=== PATIENT | male | born 1990 | race Caucasian/White ===

== ENCOUNTER 2018-05-04 14:01 | Emergency (ER) | payer OTHER ==
--- NOTE | 2018-05-04 14:27 | ED Physician Documentation ---
PD HPI ABD PAIN - Stated complaint Stated Complaint: STOMACH PX - Chief complaint Chief Complaint: Abd Pain - History obtained from History obtained from: Patient PD PAST MEDICAL HISTORY - Past Medical History Cardiovascular: None Respiratory: None Endocrine/Autoimmune: None GI: None : None HEENT: Chronic vision loss Psych: None Musculoskeletal: Other Derm: None - Past Surgical History Past Surgical History: No General: Appendectomy Ortho: Other HEENT: Tonsil/Adenoidectomy - Present Medications Home Medications: Ambulatory Orders Medication Instructions Recorded Confirmed Dexamethasone [Decadron] 4 mg PO DAILY #5 tablet 05/04/18 Naproxen 375 mg PO BID #20 tablet 05/04/18 Ondansetron HCl [Zofran] 4 mg PO Q6H PRN #20 tablet 05/04/18 Oxycodone HCl/Acetaminophen 1 each PO Q6H PRN #20 tablet 05/04/18 [Percocet 5-325 mg Tablet] Tamsulosin [Flomax] 0.4 mg PO DAILY #5 capsule 05/04/18 - Allergies Allergies/Adverse Reactions: Allergies Allergy/AdvReac Type Severity Reaction Status Date / Time nickel [Nickel] Allergy Rash Verified 05/04/18 14:13 - Social History Does the pt smoke?: Yes Smoking Status: Current every day smoker Does the pt drink ETOH?: No Does the pt have substance abuse?: No - Immunizations Immunizations are current?: Yes - POLST Patient has POLST: No PD ED PE NORMAL - Vitals Vital signs reviewed: Yes - General General: Alert and oriented X 3, No acute distress, Well developed/nourished - HEENT HEENT: Atraumatic, Pharynx benign - Neck Neck: Supple, no meningeal sign, No adenopathy - Cardiac Cardiac: RRR, No murmur - Respiratory Respiratory: Clear bilaterally - Abdomen Abdomen: Soft, Non tender - Male Male : Deferred - Rectal Rectal: Deferred - Back Back: No CVA TTP Results - Vitals Vitals: Oxygen O2 Source Room air - Labs Labs: Laboratory Tests 05/04/18 05/04/18 05/04/18 14:59 14:59 14:59 WBC 9.5 RBC 4.66 L Hgb 14.8 Hct 42.5 MCV 91.2 MCH 31.7 H MCHC 34.7 RDW 12.0 Plt Count 168 MPV 9.9 Neut # (Auto) 6.6 Lymph # (Auto) 1.7 [place] # (Auto) 1.0 Eos # (Auto) 0.1 Baso # (Auto) 0.1 Absolute Nucleated RBC 0.01 Nucleated RBC % 0.1 Sodium 136 Potassium 4.0 Chloride 100 L Carbon Dioxide 27 Anion Gap 9.0 BUN 9 Creatinine 0.9 Estimated GFR (MDRD) 100 Glucose 106 H Calcium 8.9 Total Bilirubin 0.8 AST 30 ALT 29 Alkaline Phosphatase 54 Total Protein 7.4 Albumin 4.3 Globulin 3.1 Albumin/Globulin Ratio 1.4 Lipase 43 Urine Color DARK YELLOW Urine Clarity CLEAR Urine pH 6.0 Ur Specific [place] 1.020 Urine Protein 30 H Urine Glucose (UA) NEGATIVE Urine Ketones NEGATIVE Urine Occult Blood LARGE H Urine Nitrite NEGATIVE Urine Bilirubin NEGATIVE Urine Urobilinogen 0.2 (NORMAL) Ur Leukocyte Esterase NEGATIVE Urine RBC TNTC H Urine WBC 0-3 Ur Squamous Epith Cells NONE SEEN Urine Bacteria None Seen Ur Microscopic Review INDICATED Urine Culture Comments NOT INDICATED - Rads (name of study) KUB CT Radiology: Prelim report reviewed (3 mm stone 3/[address] sss) PD MEDICAL DECISION MAKING - Sepsis Event Vital Signs: Oxygen O2 Source Room air Departure - Departure Disposition: 01 Home, Self Care Clinical Impression: Ureterolithiasis Abdominal pain Qualifiers: Abdominal location: right lower quadrant Qualified Code(s): R10.31 - Right lower quadrant pain Condition: Stable Record reviewed to determine appropriate education?: Yes Instructions: ED Stone Renal W Colic Follow-Up: BREANA TUBBS MD [Primary Care Provider] - Prescriptions: Dexamethasone [Decadron] 4 mg PO DAILY #5 tablet Naproxen 375 mg PO BID #20 tablet Ondansetron HCl [Zofran] 4 mg PO Q6H PRN #20 tablet PRN Reason: Nausea / Vomiting Oxycodone HCl/Acetaminophen [Percocet 5-325 mg Tablet] 1 each PO Q6H PRN #20 tablet PRN Reason: Pain Tamsulosin [Flomax] 0.4 mg PO DAILY #5 capsule Comments: You have a small kidney stone that is passing down the ureter and is about [address]. There should be passable over the next several days. We will treated with anti-inflammatories of both Decadron steroid and naproxen NSAID as directed. Tamsulosin tries to reduce ureter spasms and promote passage a little bit better. Use Tylenol or Percocet if needed for pain. Ondansetron if needed for nausea. Off work for a day or 2. Follow-up if not better over the next several days. Return sooner if worsening. Forms: Activity restrictions Discharge Date/Time: 05/04/18 16:50
[2018-05-04] MEDS ORDERED: KETOROLAC 60 MG/2 ML VIAL IVP STA (14:53)
[2018-05-04] MEDS ORDERED: MORPHINE 10 MG/ML VIAL IVP STA (14:53)
[2018-05-04 15:05] LABS: BILIRUBIN,URINE NEGATIVE (NEGATIVE); GLUCOSE, URINE (UA) NEGATIVE (NEGATIVE); KETONES,URINE (UA) NEGATIVE (NEGATIVE); LEUKOCYTE ESTERASE, URINE NEGATIVE (NEGATIVE); NITRITE,URINE NEGATIVE (NEGATIVE); OCCULT BLOOD,URINE LARGE (NEGATIVE); PROTEIN,URINE 30 mg/dL (NEGATIVE); UROBILINOGEN,URINE 0.2 (NORMAL) E.U./dL (NORMAL)
[2018-05-04 15:06] LABS: BASOPHILS # (AUTO) 0.1 10^3/uL (0.0-0.1); BASOPHILS % (AUTO) 0.9 %; EOSINOPHILS # (AUTO) 0.1 10^3/uL (0.0-0.7); EOSINOPHILS % (AUTO) 0.7 %; HGB - HEMOGLOBIN 14.8 g/dL (14.0-18.0); LYMPHOCYTES # (AUTO) 1.7 10^3/uL (1.5-3.5); LYMPHOCYTES % (AUTO) 17.8 %; MEAN CORPUSCULAR HEMOGLOBIN 31.7 pg (27.0-31.0); MEAN CORPUSCULAR HGB CONC 34.7 g/dL (32.0-36.0); MEAN CORPUSCULAR VOLUME 91.2 fL (80.0-94.0); MEAN PLATELET VOLUME 9.9 fL (7.4-11.4); MONOCYTES % (AUTO) 10.5 %; NEUTROPHILS # (AUTO) 6.6 10^3/uL (1.5-6.6); NEUTROPHILS % (AUTO) 70.1 %; PLT - PLATELET COUNT 168 10^3/uL (130-450); RED BLOOD COUNT 4.66 10^6/uL (4.70-6.10); WHITE BLOOD COUNT 9.5 x10^3/uL (4.8-10.8)
[2018-05-04 15:12] LABS: CLARITY,URINE CLEAR (CLEAR)
[2018-05-04 15:15] LABS: ALBUMIN 4.3 g/dL (3.2-5.5); ALBUMIN/GLOBULIN RATIO 1.4 (1.0-2.2); BILIRUBIN,TOTAL 0.8 mg/dL (0.2-1.0); CALCIUM 8.9 mg/dL (8.5-10.3); CREATININE 0.9 mg/dL (0.6-1.2); TOTAL PROTEIN 7.4 g/dL (6.7-8.2)
[2018-05-04 15:28] LABS: BACTERIA,URINE None Seen /HPF (None Seen); RBC,URINE TNTC /HPF (0-5); SQUAMOUS EPITHELIAL CELL,UR NONE SEEN (<= Few)
--- NOTE | 2018-05-04 15:46 | CT Report ---
Reason: right lower abd pain since yesterday Procedure Date: 05/04/2018 Accession Number: [id number] / [id number] Procedure: CT - KUB CPT Code: FULL RESULT: EXAM: CT ABDOMEN AND PELVIS (CT KUB) EXAM DATE: 05/04/2018 03:33 PM. CLINICAL HISTORY: Right lower abdomen pain since yesterday. COMPARISONS: None. TECHNIQUE: Routine axial helical CT imaging was performed through the abdomen and pelvis without IV contrast. Reconstructions: Coronal and sagittal. In accordance with CT protocol optimization, one or more of the following dose reduction techniques were utilized for this exam: automated exposure control, adjustment of mA and/or KV based on patient size, or use of iterative reconstructive technique. FINDINGS: Lung Bases: Unremarkable. Right Kidney/Ureter: Intrarenal stones up to 3 mm size. Mild right hydronephrosis, hydroureter, and perinephric fat stranding due to an obstructing 3 mm stone at the pelvic brim. Left Kidney/Ureter: Nonobstructing 2 mm intrarenal stone. No ureteral stones, hydronephrosis, or hydroureter. No perinephric fat stranding. Other Solid Organs: Noncontrast images of the solid organs are grossly unremarkable. Gallbladder/Bile Ducts: Unremarkable. Peritoneal Cavity: No free fluid, free air or arabella adenopathy. Bowel is grossly unremarkable. Pelvic Organs: No bladder stones or wall thickening. Noncontrast images of the visualized pelvic organs are unremarkable. Vasculature: Unremarkable. Other: None. IMPRESSION: 1. Obstructing 3 mm stone in the right ureter at the pelvic brim with mild right hydronephrosis, hydroureter, and periureteral fat stranding. 2. Small bilateral intrarenal stones also noted. RADIA
[2018-05-04] MEDS ORDERED: DEXAMETHASONE 10 MG/ML VIAL IVP STA (16:18)
[2018-05-04 17:00] VITALS: BP 128/88
== END 2018-05-04 16:50 | disposition home or self-care (01) ==
LOC: ED 14:01
DX: N20.1 Calculus of ureter (principal)
CPT/HCPCS: 36415; 74176; 80053; 81001; 81003; 83690; 85025; 87086; 96374; 96375; 99283; 99284

== ENCOUNTER 2018-06-23 18:54 | Emergency (ER) | payer OTHER ==
[2018-06-23] MEDS ORDERED: HYDROmorphone 1 MG/ML CARPUJECT IVP STA ×2 (19:12→20:32)
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
[2018-06-23 19:39] LABS: BASOPHILS # (AUTO) 0.1 10^3/uL (0.0-0.1); BASOPHILS % (AUTO) 0.7 %; EOSINOPHILS # (AUTO) 0.1 10^3/uL (0.0-0.7); EOSINOPHILS % (AUTO) 0.6 %; LYMPHOCYTES # (AUTO) 2.1 10^3/uL (1.5-3.5); LYMPHOCYTES % (AUTO) 14.7 %; MEAN CORPUSCULAR HEMOGLOBIN 31.4 pg (27.0-31.0); MEAN CORPUSCULAR HGB CONC 34.3 g/dL (32.0-36.0); MEAN CORPUSCULAR VOLUME 91.6 fL (80.0-94.0); MEAN PLATELET VOLUME 10.7 fL (7.4-11.4); MONOCYTES % (AUTO) 6.7 %; NEUTROPHILS % (AUTO) 77.3 %; PLT - PLATELET COUNT 178 10^3/uL (130-450); RED BLOOD COUNT 4.79 10^6/uL (4.70-6.10); RED CELL DISTRIBUTION WIDTH 12.7 % (12.0-15.0); WHITE BLOOD COUNT 14.3 x10^3/uL (4.8-10.8)
[2018-06-23 19:48] LABS: ALBUMIN 4.4 g/dL (3.2-5.5); ALBUMIN/GLOBULIN RATIO 1.4 (1.0-2.2); BILIRUBIN,TOTAL 0.7 mg/dL (0.2-1.0); CALCIUM 9.1 mg/dL (8.5-10.3); CREATININE 1.1 mg/dL (0.6-1.2); TOTAL PROTEIN 7.5 g/dL (6.7-8.2)
[2018-06-23] MEDS ORDERED: LIDOCAINE-MPF 2% 7.5 ML in SODIUM CHLORIDE 0.9% 50 ML IV STA (19:58)
[2018-06-23 20:05] LABS: BILIRUBIN,URINE NEGATIVE (NEGATIVE); KETONES,URINE (UA) NEGATIVE (NEGATIVE); OCCULT BLOOD,URINE LARGE (NEGATIVE); PH,URINE 5.5 PH (5.0-7.5)
[2018-06-23 20:14] LABS: CLARITY,URINE BLOODY (CLEAR)
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
[2018-06-23 20:16] LABS: BACTERIA,URINE None Seen /HPF (None Seen); RBC,URINE TNTC /HPF (0-5); SQUAMOUS EPITHELIAL CELL,UR RARE Squamous (<= Few)
[2018-06-23] MEDS ORDERED: PHENAZOPYRIDINE 100 MG TABLET PO STA (20:29)
[2018-06-23] MEDS ORDERED: OXYBUTYNIN 5MG TABLET PO STA (20:29)
[2018-06-23] MEDS ORDERED: PHENAZOPYRIDINE 100 MG TABLET PO ONE (20:55)
[2018-06-23] MEDS ORDERED: KETOROLAC 60 MG/2 ML VIAL IVP STA (21:16)
[2018-06-23 21:28] VITALS: BP 140/82
== END 2018-06-23 21:42 | disposition home or self-care (01) ==
LOC: ED 18:54
DX: R10.31 Right lower quadrant pain (principal); Z87.442 Personal history of urinary calculi; T18.2XXD Foreign body in stomach, subsequent encounter; X58.XXXD Exposure to other specified factors, subsequent encounter; Z87.891 Personal history of nicotine dependence
CPT/HCPCS: 36415; 74018; 80053; 81001; 83690; 85025; 96365; 96375; 96376; 99284; A9270; J1170; J7040; 81003; 87086

== ENCOUNTER 2018-12-28 12:40 | Emergency (ER) | payer OTHER ==
[2018-12-28] MEDS ORDERED: LIDOCAINE 2%-EPI 1:100000 20 ML MDV SUBQ STA (13:40)
--- NOTE | 2018-12-28 13:45 | ED Physician Documentation ---
History of Present Illness - Stated complaint Stated Complaint: RT HIP CYST - Chief complaint Chief Complaint: General - History obtained from History obtained from: Patient - History of Present Illness Timing: How many days ago (2) Pain level max: 6 Pain level now: 5 - Additonal information Additional information: 28 year old male with redness and swelling to the R hip. no IV/SQ drug use. Td UTD. No similar symptoms before. no injury. nothing makes it better or worse. Review of Systems Constitutional: denies: Fever, Chills Nose: denies: Rhinorrhea / runny nose, Congestion Throat: denies: Sore throat Cardiac: denies: Chest pain / pressure Respiratory: denies: Cough GI: denies: Nausea, Vomiting, Diarrhea Musculoskeletal: denies: Neck pain, Back pain Neurologic: denies: Headache PD PAST MEDICAL HISTORY - Past Medical History Past Medical History: No Cardiovascular: None Respiratory: None Neuro: None Endocrine/Autoimmune: None GI: None : None HEENT: Chronic vision loss Psych: None Musculoskeletal: None Derm: None - Past Surgical History Past Surgical History: No General: Appendectomy Ortho: Other HEENT: Tonsil/Adenoidectomy - Present Medications Home Medications: Ambulatory Orders Medication Instructions Recorded Confirmed Sulfamethox/Trimeth 800/160 1 each PO BID #14 tablet 12/28/18 [Bactrim Ds 800/160] - Allergies Allergies/Adverse Reactions: Allergies Allergy/AdvReac Type Severity Reaction Status Date / Time nickel [Nickel] Allergy Rash Verified 12/28/18 12:46 - Social History Does the pt smoke?: Yes Smoking Status: Current every day smoker Does the pt drink ETOH?: Yes Does the pt have substance abuse?: No - Immunizations Immunizations are current?: Yes - POLST Patient has POLST: No PD ED PE NORMAL - Vitals Vital signs reviewed: Yes - General General: Alert and oriented X 3, No acute distress - HEENT HEENT: Moist mucous membranes - Neck Neck: Supple, no meningeal sign - Derm Derm: Warm and dry - Extremities Extremities: Other (2x2cm abscess to the R hip. ) - Neuro Neuro: Alert and oriented X 3 - Psych Psych: Normal mood, Normal affect Results - Vitals Vitals: Vital Signs - 24 hr 12/28/18 14:10 Temperature 36.0 C L Heart Rate 86 Respiratory 16 Rate Blood Pressure 145/86 H O2 Saturation 98 Oxygen O2 Source Room air - Labs Labs: Microbiology 12/28/18 13:55 Wound Culture - Preliminary Abscess Procedures - Abscess I&D (location) R hip Preparation: Lidocaine 2 %, With epi Incision: Incised with scalpel, Purulent drainage, Culture obtained Other: Pt tolerated well PD MEDICAL DECISION MAKING - ED course Complexity details: considered differential, d/w patient ED course: Patient with a small abscess to the right hip. Incised and drained. Tolerated well. There is surrounding cellulitis, therefore will place on antibiotics. Patient counseled regarding signs and symptoms for which I believe and urgent re-evaluation would be necessary. Patient with good understanding of and agreement to plan and is comfortable going home at this time This document was made in part using voice recognition software. While efforts are made to proofread this document, sound alike and grammatical errors may occur. Departure - Departure Disposition: 01 Home, Self Care Clinical Impression: Abscess Condition: Good Instructions: ED Abscess IandD Follow-Up: BREANA TUBBS MD [Primary Care Provider] - Within 1 week Prescriptions: Sulfamethox/Trimeth 800/160 [Bactrim Ds 800/160] 1 each PO BID #14 tablet Comments: Take all antibiotics until gone. Return if you worsen. Discharge Date/Time: 12/28/18 14:11
[2018-12-28 14:11] VITALS: BP 145/86
== END 2018-12-28 14:11 | disposition home or self-care (01) ==
LOC: ED 12:40
DX: L02.416 Cutaneous abscess of left lower limb (principal); L03.115 Cellulitis of right lower limb; F17.200 Nicotine dependence, unspecified, uncomplicated
CPT/HCPCS: 10060; 87070; 87205; 99283

== ENCOUNTER 2022-12-13 13:10 | Emergency (ER) | payer OTHER ==
[2022-12-13 13:22] VITALS: BP 140/80
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
--- NOTE | 2022-12-13 13:57 | XRAY Report ---
PROCEDURE: Knee 3 View LT INDICATIONS: pain and pop TECHNIQUE: 3 views of the left knee(s) were acquired. COMPARISON: None. FINDINGS: Bones: No fractures or dislocations. No suspicious bony lesions. Soft tissues: No knee joint effusion. No suspicious soft tissue calcifications or masses. IMPRESSION: No acute bony abnormality. If there remains a high clinical concern for fracture, including inability to bear weight, consider cross-sectional imaging to exclude an occult fracture. Reviewed by: Juan Blue on 12/13/2022 1:55 PM PDT Approved by: Juan Blue on 12/13/2022 1:55 PM PDT Station ID: [id number]
== END 2022-12-13 14:55 | disposition home or self-care (01) ==
LOC: ED 13:10
DX: S83.412A Sprain of medial collateral ligament of left knee, initial encounter (principal); X50.1XXA Overexertion from prolonged static or awkward postures, initial encounter; Y93.83 Activity, rough housing and horseplay; F17.200 Nicotine dependence, unspecified, uncomplicated
CPT/HCPCS: 99283

== ENCOUNTER 2023-06-09 13:53 | Outpatient (CLI) | payer OTHER ==
--- NOTE | 2023-06-09 14:53 | Sleep Patient Instructions ---
Sleep Center Visit Summary - Patient Visit Information Reason for Visit: Initial consult for evaluation of sleep disordered breathing and other sleep issues. - Patient Instructions Instructions Attached: Sleep Study Home Monitor, Sleep Clinic Visit, Sleep Study Additional Instructions: You will be completing a sleep study, either an in-lab polysomnography (PSG) or home sleep study (HST). You will follow-up in the sleep care office after the sleep study is completed to hear the results and talk about therapy, if needed. You will be called by our office staff to schedule this appointment, but you may contact us with any questions. - Clinic Information Contact: [facility] [address] [place] [address] [email or web address] T: [phone]
--- NOTE | 2023-06-09 14:57 | SLEEP CARE CONSULTATION ---
Information from patient questionnaire entered by Lisbet Agrawal. I have reviewed and concur with the information entered by Lisbet Agrawal. This document represents the service I personally performed and the decisions made by me, Peggy Wright ARNP. History of Present Illness Service Date and Time: 06/09/2023 1353 Reason for Visit: New patient Chief Complaint: reports: Unrefreshed sleep, Snoring, Excessive daytime sleepiness, Observed pauses in breathing, Fatigue, Frequent awakenings at night Date of Onset: 10PLUS YRS Usual bedtime: 9-930PM Time it takes to fall asleep: 10-15MINS Snores at night: Yes Observed to quit breathing while asleep: Yes Sleeps alone due to snoring: Yes Number of times waking at night: 3-8 Reasons for waking at night: reports: Choking, Snoring, Gasping for air, Bathroom, Other (UNKNOWN, NOISE) Toss, Turn, or Twitch while sleeping: Yes Recalls having dreams: Yes Usually gets out of bed at: 06-0615AM Feels refreshed in the morning: No Morning headache: No Sleepy or fatigued during the day: Yes Ever fallen asleep while driving: Yes (drowsy driving, no accidents) Takes day naps: Yes (2 times a week for 15-30 mins) Dreams during day naps: Yes Prior sleep studies: No Additional HPI information: I had the pleasure of seeing ABY BONILLA today regarding the possibility of him having a sleep disorder. His current complaints are unrefreshed sleep, snoring, excessive daytime sleepiness, observed pauses in breathing, fatigue and frequent night awakenings. He states he is always tired. He wake up tired and snoring. He does sometimes sleep separate due to snoring. - Parasomnia Symptoms Ever been unable to move upon waking from sleep: Yes (not often) Walks in sleep: Yes (more when younger) Talks in sleep: Yes Ever acted out dreams in sleep: Yes (moving arms during dreams) Ever felt weak in the knees when startled or emotional: Yes (has not fallen to ground) Bothered by creepy, crawly, restless sensations in legs: No Problems with memory or concentration: Yes (both; memory worse) Subjective Initial [place] Sleepiness Scale score: 17 (06/09/23) Past Medical History Past Medical History: reports: Other (no significant medical history; tonsillectomy and adenoidectomy around 9 yrs old) Social History 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 Patient is Single and lives in [place]. Have you smoked in the past 12 months: Yes Cigarettes per day (20/pack): 20 Years of smokin Quit date: 04/2023 Smoking Pack Years: 10.0 Alcohol use: Yes Alcohol amount and frequency: 4-5 ONCE A WEEK Caffeine use: Yes Caffeine amount and frequency: 2 PER DAY Family History Family history of sleep disordered breathing: Yes Family Hx Sleep Apnea: Mother: Snoring, Father: Snoring, Sibling: Snoring Allergies and Home Medications Known drug allergies: No (nickel) Drug allergies reviewed: Yes Home medication list reviewed: Yes (occasional melatonin; tums nightly) Allergy and home medication list: Allergies nickel [Nickel] Allergy (Verified 06/08/23 09:37) Rash Home Medications Medication Instructions Recorded Confirmed Last Taken Type No Known Home Medications 12/13/22 06/09/23 Unknown History Review of Systems Weight gain over past 5 years: 10 Weight loss over past 5 years: 10 Cardiovascular: denies: high blood pressure Respiratory: reports: wheeze Gastrointestinal: reports: heartburn, difficulty swallowing, nausea, diarrhea, abdominal pain Neurological: denies: headaches Psychiatric: denies: anxiety, depression Ear/Nose/Throat: reports: tonsillectomy (and adenoidectomy at 9 yrs old), wisdom teeth removed Endocrine: reports: sluggishness, too hot or cold, excessive thirst Immunologic: reports: allergies to food or environment (nickel) Physical Exam Vital signs obtained and entered by: LISBET Barker MA Blood Pressure: 122/70 (LEFT ARM) Cuff size: regular Heart Rate: 74 O2 Saturation: 98 Height: 5 ft 9 in Weight: 231 lb 9.6 oz Body Mass Index: 34.2 BMI Classification: Obese Neck circumference: 17 Mouth and throat: narrow oropharynx Soft palate: long Hard palate: arched Uvula: normal Uvula visualization: 0% Mallampati Class IV Tongue: enlarged in size with teeth [place] on lateral edges Tonsils: absent bilaterally Neck: normal w/o lymphadenopathy or thyromegaly Heart: regular rate and rhythm Lungs: clear bilaterally Impression and Plan 1. Suspected Obstructive Sleep Apnea-Hypopnea Syndrome, as suggested by a history of loud and irregular snoring, observed cessation of breath while a sleep, gasping or choking in sleep, frequent awakening during the night, unrefreshed sleep, cognitive impairment, and excessive daytime sleepiness. Narrow oropharynx and obesity are common predisposing factors for obstructive sleep apnea-hypopnea syndrome. I recommend proceeding to polysomnography to confirm the diagnosis and to assess severity. If the patient has significant sleep disordered breathing, a manual CPAP titration study will also be performed to find the optimal treatment pressure. I informed the patient of what the sleep studies involve and after some discussion, obtained agreement to proceed. The pathophysiology of obstructive sleep apnea-hypopnea syndrome was discussed with the patient and health risks of cardiovascular and cerebrovascular disease if not treated. Risks of drowsy driving discussed in detail and patient advised to avoid long distance driving and to drum puller at the first sign of drowsiness. Patient agreed to plan. * Schedule polysomnography. * Avoid long distance driving or driving when feeling sleepy. * Avoid alcohol, sedative and muscle relaxant around bedtime. * Attempt to lose weight. * Review instructions provided by trained office staff on how to prepare for the sleep study. * Return for follow-up after sleep study completed. Counseling Topics: Weight loss health impact Plan: PSG Visit Type: In Office Time Spent with Patient (minutes): 30 Provider Statement: I spent 100% of the Face to Face Visit with the patient with greater than 50% spent counseling the patient and coordination of care.
[2023-06-09 15:05] VITALS: BP 122/70; O2SAT 98
== END 2023-06-09 13:54 | disposition home or self-care (01) ==
LOC: SC 13:53
PROVIDERS: ATTEND Nurse Practitioner Family
DX: R06.83 Snoring (principal); R06.81 Apnea, not elsewhere classified; G47.8 Other sleep disorders; R41.89 Other symptoms and signs involving cognitive functions and awareness; G47.10 Hypersomnia, unspecified; E66.9 Obesity, unspecified; Z68.34 Body mass index [BMI] 34.0-34.9, adult
CPT/HCPCS: 99203; 99212

== ENCOUNTER 2023-07-06 19:18 | Outpatient (CLI) | payer OTHER | END 2023-07-06 19:19 | disposition home or self-care (01) | LOC: SC 19:18 | PROVIDERS: ATTEND Nurse Practitioner Family | DX: R06.83 Snoring (principal); G47.8 Other sleep disorders; R06.81 Apnea, not elsewhere classified; G47.10 Hypersomnia, unspecified; R53.83 Other fatigue; E66.9 Obesity, unspecified; Z68.34 Body mass index [BMI] 34.0-34.9, adult | CPT/HCPCS: 95810 ==

== ENCOUNTER 2023-07-26 13:20 | Outpatient (CLI) | payer OTHER ==
--- NOTE | 2023-07-26 13:46 | Sleep Patient Instructions ---
Sleep Center Visit Summary - Patient Visit Information Reason for Visit: Sleep study follow-up - Patient Instructions Instructions Attached: Snoring Tips Prevent Additional Instructions: Your sleep study today was negative for significant sleep disordered breathing. You were found to have episodes of snoring. There are different ways to control snoring including weight loss, oral devices made by a dentist or surgical options through ENT specialist. You should not use oral devices that do not fit properly because they can affect your bite. You should also check insurance coverage of oral devices for snoring because they may not be cover well. You may obtain a referral to an ENT specialist through your primary provider. Follow-up as needed. - Clinic Information Contact: [facility] [address] [place] [address] [email or web address] T: [phone]
--- NOTE | 2023-07-26 13:50 | SLEEP CARE CONSULTATION ---
Information from patient questionnaire entered by Maude Agrawal. I have reviewed and concur with the information entered by Maude Agrawal. This document represents the service I personally performed and the decisions made by , Peggy Wright ARNP. History of Present Illness Service Date and Time: 07/26/2023 1320 Initial [place] Sleepiness Scale score: 17 (06/09/23) Current [place] Sleepiness Scale score: 22 (07/26/23) Additional HPI information: ABY BONILLA returns for follow up and results of the recently performed polysomnography. The patient was informed of the following findings: No significant sleep disordered breathing with an average AHI of 1.0 and walter oxygen saturation of 89%. I explained the pathophysiology behind obstructive sleep apnea. Patient does not have sleep apnea and was advised how weight gain could increase the risk of developing sleep apnea in the future. I strongly encouraged the patient to lose weight. Patient has light to loud snoring. Snoring can be reduced by weight loss. Weight loss is best achieved with diet consult. Patient instructed to contact PCP for referral. Snoring can also be treated with an oral appliance from a dentist. Advised to check insurance coverage. In addition, an ENT evaluation can be do to see if other treatment is indicated. Patient counseled not drink alcohol less than 4 hours before bedtime as it can increase snoring and apnea. Patient was cautioned about risks of drowsy driving until sleepiness symptoms resolve. Sleep Study - Results Type of Sleep Study: Polysomnography (COMPLETED 07/06/23) Prior sleep studies: No Polysomnography/Home Sleep Study results: IMPRESSION: The quality of the study is good. The patient had normal sleep efficiency. The sleep architecture was normal as well. Respiratory monitoring showed no significant sleep disordered breathing (AHI = 1.0) or hypoxia (walter oxygen saturation of 89%). The slept mostly supine (supine AHI = 1.2; non-supine = 0.51). Snore was light to loud in intensity. There was no significant periodic leg movement of sleep. Cardiac rhythm was normal sinus rhythm without significant arrhythmia. No abnormal behavior (parasomnia) observed during the night. Allergies and Home Medications Known drug allergies: Yes (nickel) Drug allergies reviewed: Yes Home medication list reviewed: Yes (no changes) Allergy and home medication list: Allergies nickel [Nickel] Allergy (Verified 07/25/23 14:45) Rash Review of Systems Review of systems same as previous: Yes (NO CHANGE) Physical Exam Vital signs obtained and entered by: MAUDE Barker MA Blood Pressure: 120/76 (LEFT ARM) Cuff size: regular Heart Rate: 83 O2 Saturation: 97 Height: 5 ft 9 in Weight: 240 lb 9.6 oz Body Mass Index: 35.5 BMI Classification: Obese Impression and Plan 1. Snoring but no significant sleep disordered breathing. Patient advised that often weight loss will reduce snoring as well as apnea risk. An oral appliance can also be used for snoring. This would require a dental consultation. Patient cautioned not to use other online appliances as can cause bite issues. Patient is advised to check if insurance will cover. An ENT consult can also be helpful to determine if any other treatment is an option. AAS How to Sleep Better pamphlet given and explained to patient. He voiced understanding. 2. Obesity, unspecified. Currently patients BMI is 35.5. Obesity increases the risk of apnea, CPAP pressure requirements and overall health risks especially cardiovascular and diabetes. Thus patient is advised to lose weight. * Attempt to lose weight * Avoid alcohol consumption near bedtime * The patient is cautioned about driving until sleepiness is completely resolved. * Return as needed for follow up. Counseling Topics: Weight loss health impact Follow up with Sleep Care in: as needed Visit Type: In Office Time Spent with Patient (minutes): 13 Provider Statement: I spent 100% of the Face to Face Visit with the patient with greater than 50% spent counseling the patient and coordination of care.
[2023-07-26 14:06] VITALS: BP 120/76; O2SAT 97
== END 2023-07-26 13:21 | disposition home or self-care (01) ==
LOC: SC 13:20
PROVIDERS: ATTEND Nurse Practitioner Family
DX: R06.83 Snoring (principal); E66.9 Obesity, unspecified; Z68.35 Body mass index [BMI] 35.0-35.9, adult
CPT/HCPCS: 99212